=== PATIENT | female | born 1940 | race Caucasian/White ===

== ENCOUNTER 2020-03-04 11:07 | Emergency (ER) | payer OTHER ==
--- NOTE | 2020-03-04 11:12 | PDOC ---
History of Present Illness - General Stated Complaint: POSSIBLE SEPSIS Time Seen by Provider: 03/04/20 11:11 History Source: EMS, Family Exam Limitations: Clinical Condition, Unresponsive
[2020-03-04] MEDS ORDERED: ACETAMINOPHEN 1000 MG/100 ML VIAL (NON FORMULARY) IVPB ONE (11:15)
[2020-03-04] MEDS ORDERED: SODIUM CHLORIDE 1,000 ML IV SCH (11:15)
--- NOTE | 2020-03-04 11:22 | PDOC ---
History of Present Illness <FitznonaPramod - Last Filed: 03/04/20 12:04> - General History Source: Patient Exam Limitations: No Limitations - History of Present Illness Initial Comments: 03/04/20 11:16 HPI: 79 yo F last known well was 3 days ago, presenting with AMS and suspected sepsis. Patient obtunded, not responsive, opens eyes and looks around the room, but not protecting her airway, only moving LUE, activated as a code sen, intubated for airway protection. Not know at this hospital, history obtained from EMS and patient's son. All: NKDA Meds: Per chart PMH: Per chart PSH: Per chart <Yomi Joseph - Last Filed: 03/05/20 09:49> - General Chief Complaint: Altered Mental Status Stated Complaint: POSSIBLE SEPSIS Time Seen by Provider: 03/04/20 11:11 NIH Stroke Scale - Last Known Well Date/Time & Onset Date Last Known Well: 03/03/20 Time Last Known Well: 20:00 - Initial Evaluation Level of consciousness: Not alert, but arousable with minimal stimulation Ask patient the month and their age: Both incorrect Ask patient to open & close eyes; make fist and let go: Both incorrect Best gaze (horizontal eye movement): Partial gaze palsy (left gaze) Visual field testing: No visual field loss Facial paresis (Show teeth/raise eyebrows/close eyes tight): Partial paralysis (total or near paralysis of lower face) Motor Function: Left Arm: Normal Motor Function: Right Arm: No movement Motor Function: Left Leg: No effort against gravity Motor Function: Right Leg: No movement Limb Ataxia: Untestable (Joint fused or limb amputated), explain: (paralysis / clnical condition) Sensory(Use pinprick test arms,legs,trunk,face/side to side): Severe to total sensory loss Best language (Describe picture, name items, read sentences): Mute Dysarthria (read several words): Intubated or other physical barrierr, explain: (intubated) Extinction and Inattention: Profound leonel-inattention or extinction to more than one modality (ignoring right side) - Total Score NIH Stroke Scale Score: 26 <Yomi Joseph - Last Filed: 03/05/20 09:49> tPA Exclusion checklist 3-4.5h - Time Elapsed Date last known well: 03/03/20 Time last known well: 20:00 Elaspsed time: 1 Day(s) and 13 Hour(s) and 47 Minutes - Thrombolytic Therapy Candidate Is patient eligible for thrombolytic therapy: No - Relative Exclusion Criteria 3-4.5 hr Care team unable to determine eligibility: No IV/IA thrombolysis/thrombectomy @ another hosp prior arrival: No Life expectancy <1 yr or severe co-morbid illness: No : No Patient/family refused: No Stroke severity too mild (non-disabling): No Recent acute [place] (w/in previous 3 months): No Seizure at onset with postictal residual neuro impairments: No Major surgery or serious trauma w/in previous 14 days: No Recent GI or hemorrhage (w/in previous 21 days): No - Add'l Relative Exclusion 3-4.5 hr Age > 80: Yes Hx of both diabetes AND prior ischemic stroke: No Taking an oral anticoagulant regardless of INR: No Severe Stroke (NIHSS >25): Yes - Ineligibility reason(s) Reasons No tPA given: Outside of window - delayed arrival (outside window for TPA) <Yomi Joseph - Last Filed: 03/05/20 09:49> Past History <Pramod Gonzalez - Last Filed: 03/04/20 12:04> - Travel History Traveled outside of the country in the last 30 days: No Close contact w/someone who was outside of country & ill: No <Yomi Joseph - Last Filed: 03/05/20 09:49> - Medical History Allergies/Adverse Reactions: Allergies Allergy/AdvReac Type Severity Reaction Status Date / Time No Allergy Information Allergy Unverified 03/04/20 11:13 Available Review of Systems - Review of Systems Able to Perform ROS?: No (Obtunded) Is the patient limited Citizen Of [place] proficient: Yes <Yomi Joseph - Last Filed: 03/05/20 09:49> *Physical Exam - Physical Exam 03/04/20 11:18 Vitals reviewed, afebrile (98.1 rectal), tachycardic GEN: Obtunded, appears stated age, smells of feces and urine. HEENT: NCAT, left gaze deviation, facial droop, PERRL. Sclera anicteric, non-inj ected. No facial asymmetry. CV: RRR, S1/S2, no murmurs / rubs / gallops appreciated. LUNG: CTABL, normal work of breathing. No wheezes, rales, rhonchi. No cough. GI: Soft, NTND, +BS, no guarding, no rebound. No masses. EXTREMITIES: 2+ distal pulses. No clubbing / cyanosis / edema. No gross deformity in any extremity. SKIN: Warm, dry, no rashes appreciated, non-jaundiced. Wound below right knee, on right foot, both without surrounding skin changes. PSYCH: Unable to assess. NEURO: Obtunded, left gaze deviation. Moves RLE to pain, moving LUE spontaneously. <Yomi Joseph - Last Filed: 03/05/20 09:49> Procedures - Intubation Time of Intubation: 22:00 Intubation Method: orotracheal Blade used: Glidescope Tube Size (Fr): 7.5 Medications: Etomidate, Rocuronium Tube position @ lip (cm): 20 Tube position confirmed by: Direct visualization, CO2 detector, Chest x-ray, Breath sounds Breath Sounds after Intubation: equal Intubation Complications: no complications Post Intubation Xray: Yes (advanced 2cm) <Yomi Joseph - Last Filed: 03/05/20 09:49> ED Treatment Course - LABORATORY CBC & Chemistry Diagram: 03/04/20 11:30 03/04/20 11:30 <Pramod Gonzalez - Last Filed: 03/04/20 12:04> - LABORATORY CBC & Chemistry Diagram: 03/04/20 11:30 03/04/20 11:30 <Yomi Joseph - Last Filed: 03/05/20 09:49> Medical Decision Making - Critical Care Time Total Critical Care Time (minutes): 60 Critical Care Statement: The care of this patient involved high complexity decision making to prevent further life threatening deterioration of the patient's condition and/or to evaluate & treat vital organ system(s) failure or risk of failure. - Medical Decision Making 03/04/20 12:47 79 yo F AMS, activated as code Sen due to gaze deviation and alteration. Found to have left MCA stroke. Intubated for airway protection. Afib with RVR, unclear when last took medications. Accepted for transfer at [facility]. - Sepsis and Stroke workup - Cardizem pushes for afib RVR (15, 10) - Propofol for sedation Dispo: Transfer to [facility] <Yomi Joseph - Last Filed: 03/05/20 09:49> Discharge - Discharge Information Problems reviewed: Yes <Pramod Gonzalez - Last Filed: 03/04/20 12:04> - Discharge Information Problems reviewed: Yes - Transfer to Acute Care Facility Receiving Facility Name: [facility]) Accepting Physician:: Dr. Santos <Yomi Joseph - Last Filed: 03/05/20 09:49> - Discharge Information Clinical Impression/Diagnosis: Acute ischemic left MCA stroke, Atrial fibrillation with RVR Condition: Guarded Disposition: TRANSFER ACUTE CARE/OTHER HOSP
[2020-03-04] MEDS ORDERED: dilTIAZem HCL 125 MG/25 ML - 25 ML VIAL ONE (11:28)
[2020-03-04] MEDS ORDERED: dilTIAZem HCL 50 MG/10 ML - 10 ML VIAL IVPUSH ONE ×2 (11:29→12:34)
[2020-03-04] MEDS ORDERED: PROPOFOL 1,000,000 MCG/100 ML VIAL ONE (11:48)
[2020-03-04 11:59] LABS: VENOUS BASE EXCESS -1.8 mmol/L (-2-2); VENOUS O2 SATURATION 39.6 % (70-80); VENOUS PCO2 42.5 mmHg (38-52); VENOUS PH 7.363 (7.310-7.410)
[2020-03-04 12:06] VITALS: TEMP 98.2
[2020-03-04 12:13] VITALS: BMI 35.4
[2020-03-04 12:15] LABS: INR 1.1 (0.83-1.09)
[2020-03-04 12:18] LABS: ACTIVATED PTT 25.8 SECONDS (25.2-36.5)
[2020-03-04] MEDS ORDERED: ETOMIDATE 20 MG/10 ML AMPUL IVPUSH ONE (12:19)
[2020-03-04] MEDS ORDERED: ACETAMINOPHEN INJECTION 100 ML IVPB ONE (12:19)
[2020-03-04] MEDS ORDERED: ROCURONIUM BROMIDE 50 MG/5 ML VIAL IV ONE (12:19)
--- NOTE | 2020-03-04 12:24 | PDOC ---
Documentation entered by Eva Salazar SCRIBE, acting as scribe for Jaki Sloan MD. Jaki Sloan MD: This documentation has been prepared by the darianibMartin knight Lincy, SCRIBE, under my direction and personally reviewed by me in its entirety. I confirm that the documentation accurately reflects all work, treatment, procedures, and medical decision making performed by me. Attending Attestation - Resident Resident Name: JakeYomi - ED Attending Attestation I have performed the following: I have examined & evaluated the patient, The case was reviewed & discussed with the resident, I agree w/resident's findings & plan, Exceptions are as noted - HPI HPI: 03/04/20 11:46 The patient is an 79-year-old female with a past medical history significant for Afib who presents to the emergency department with AMS. Per the patients son, last known well was 3 days ago. The patient was compliant with her medication yesterday morning and hasn't been seen by someone since, except by her daughter. The patient resides with her mentally disabled daughter, who reports the patient suffered a fall. The patient was found down at home with a bottle of Percocet near her. Unsure if the patient took the medication. The patient didnt have pinpoint pupils on the scene. On arrival to the ED, the patient had a strong urine smell. History is limited due to clinical condition and patient has never been to the this ED - Physicial Exam PE: 03/04/20 11:41 GENERAL: elderly, +obtunded, HEENT: +Left gaze deviated. PERRLA, EOMI, a bit dry mucous membranes NECK/BACK: no midline ttp, no spinal stepoff or deformity, no hematoma, neck supple CARDIOVASCULAR: rapid HR and irregularly irregular, no MGR, strong peripheral pulses, capillary refill 4 seconds, extremities wwp, no edema LUNGS/RESPIRATORY: no respiratory distress, CTAB GI/ABDOMEN: +defecated in the diaper. symmetric [id number], normoactive BS, soft, no ttp, no midline pulsatile masses : +strong smell of urine. no CVA tenderness MSK/EXTREMITIES: +no outward evidence of trauma. no acute-appearing muscle atrophy, no acute deformity DERM/SKIN: warm and dry, no pallor, no jaundice, no rash, no pathologic-appear ing bruising, no skin breakdown, no cuts, no lesions NEUROLOGICAL: +left gaze deviated. +obtunded, GCS 7, right sided neglect, 2/5 strength RUE, no purposeful movements of BLE, 5/5 strength LUE, no obvious facial droop - Medical Decision Making 79YOF with A-fib, on Eliquis and Metoprolol, found down on ground at home after unknown amount of time, last seen acting at normal baseline ~3 days ago per her son. Initial Vital Signs Temp Pulse Resp BP Pulse Ox 98.1 F 207 H 19 190/97 H 99 03/04/20 11:08 03/04/20 11:08 03/04/20 11:08 03/04/20 11:08 03/04/20 11:08 Most likely stroke given the patient's exam with prominent neuro deficits, decreased responsiveness, inability to communicate with us. Patient was reportedly hypoxic on EMS arrival on scene, SpO2 80% per their report. There is also possible component of sepsis given the strong urine odor. Provider Orders Category Date Time Status VBG [VENOUS BLOOD GAS] Stat ABG 03/04/20 11:30 Completed TYPE AND SCREEN Stat Blood Bank 03/04/20 11:[address] (STROKE) [CT] Stat CT Scan 03/04/20 11:13 Completed ELECTROCARDIOGRAM [CARD] Stat Cardiology 03/04/20 11:13 Ordered BGM (Blood Glucose Monitoring) NOW Care 03/04/20 11:15 Active Cardiac Monitoring Continuous Care 03/04/20 11:13 Active EKG needed NOW Care 03/04/20 11:13 Completed Blakely Catheter, Daily Care DAILY Care 03/04/20 12:35 Active Blakely Catheter, Insert ONCE Care 03/04/20 12:35 Completed HOB Elevated 30-45 Degrees NOW Care 03/04/20 11:13 Active IV - Insert 2 lines NOW Care 03/04/20 11:13 Completed Insert Saline Lock NOW Care 03/04/20 11:13 Active Vital Signs Q30M Care 03/04/20 11:13 Active Weight NOW Care 03/04/20 11:13 Active Physician Consultation Physician 1 Cons 03/04/20 11:13 Ordered CARDIAC PROFILE ([facility]) Stat Lab 03/04/20 11:30 Completed CBC WITH DIFFERENTIAL Stat Lab 03/04/20 11:30 Completed CK INDEX Stat Lab 03/04/20 11:30 Completed CK MB Stat Lab 03/04/20 11:30 Completed COMP METABOLIC PANEL Stat Lab 03/04/20 11:30 Completed Covid 19 in-house (Restricted use only) [SARS COV-2 RT- Lab 03/04/20 11:51 Completed PCR] Urgent LACTIC ACID Stat Lab 03/04/20 11:30 Completed LIPID PROFILE ([facility] ONLY) Stat Lab 03/04/20 11:30 Completed PT & APTT Stat Lab 03/04/20 11:30 Completed UA ([facility]) ONLY Stat Lab 03/04/20 11:50 Completed Acetaminophen Injection [Ofirmev Injection -] Medication 03/04/20 11:15 Discontinued 1,000 mg IVPB ONCE ONE Acetaminophen Injection [Ofirmev Injection -] 100 ml Medication 03/04/20 12:19 Discontinued IVPB UD Diltiazem Injection [Cardizem Injection -] Medication 03/04/20 12:34 Discontinued 10 mg IVPUSH ONCE ONE Diltiazem Injection [Cardizem Injection -] Medication 03/04/20 11:28 Discontinued 125 mg .ROUTE .STK-MED ONE Diltiazem Injection [Cardizem Injection -] Medication 03/04/20 11:29 Discontinued 15 mg IVPUSH ONCE ONE Etomidate [Amidate -] Medication 03/04/20 12:19 Discontinued 20 mg IVPUSH ONCE ONE Propofol [Diprivan -] Medication 03/04/20 11:48 Discontinued 1,000,000 mcg in 100 ml .ROUTE UD Rocuronium [place] [[place] -] Medication 03/04/20 12:19 Discontinued 100 mg IV ONCE ONE Sodium Chloride [Normal Saline -] 1,000 ml Medication 03/04/20 11:15 Discontinued IV ASDIR Sodium Chloride [Normal Saline -] 1,000 ml Medication 03/04/20 12:35 Discontinued IV ASDIR BLOOD CULTURE Stat Micro 03/04/20 11:30 Received URINE CULTURE Stat Micro 03/04/20 11:50 Received Continuous Pulse Oximetry NOW Phy Order 03/04/20 11:13 Completed CHEST X-RAY PORTABLE* [RAD] Stat Radiology 03/04/20 12:08 Completed Reminder: new phy cons See Order Reminders 03/04/20 11:13 Ordered Vent Settings As directed Scratcher 03/04/20 12:04 Active Medications Discontinued Medications Generic Name Dose Route Start Last Admin Trade Name Dasia PRN Reason Stop Dose Admin Acetaminophen 1,000 mg 03/04/20 11:15 03/04/20 12:30 Ofirmev Injection - IVPB 03/04/20 11:16 1,000 mg ONCE ONE Administration Diltiazem HCl 15 mg 03/04/20 11:29 03/04/20 12:30 Cardizem Injection - IVPUSH 03/04/20 11:30 15 mg ONCE ONE Administration Diltiazem HCl Confirm 03/04/20 11:28 Cardizem Injection - Administered 03/04/20 11:29 Dose 125 mg .ROUTE .STK-MED ONE Diltiazem HCl 10 mg 03/04/20 12:34 Cardizem Injection - IVPUSH 03/04/20 12:35 ONCE ONE Etomidate 20 mg 03/04/20 12:19 03/04/20 12:31 Amidate - IVPUSH 03/04/20 12:20 20 mg ONCE ONE Administration Sodium Chloride 1,000 mls @ 42 mls/hr 03/04/20 11:15 03/04/20 12:30 Normal Saline - IV 42 mls/hr ASDIR CARL Administration Propofol Confirm 03/04/20 11:48 Diprivan - Administered 03/04/20 11:49 Dose 1,000,000 mcg in 100 mls @ ud .ROUTE .STK-MED ONE Acetaminophen Confirm 03/04/20 12:19 Ofirmev Injection - Administered 03/04/20 12:20 Dose 100 mls @ ud IVPB .STK-MED ONE Sodium Chloride 1,000 mls @ 1,000 mls/hr 03/04/20 12:35 Normal Saline - IV 03/04/20 13:34 ASDIR STA Rocuronium [place] 100 mg 03/04/20 12:19 03/04/20 12:31 Zem[place] - IV 03/04/20 12:20 100 mg ONCE ONE Administration Lab Results WBC 16.3 K/mm3 (4.0-10.0) H 03/04/20 11:30 RBC 4.00 M/mm3 (3.60-5.2) 03/04/20 11:30 Hgb 12.7 GM/dL (10.7-15.3) 03/04/20 11:30 Hct 38.8 % (32.4-45.2) 03/04/20 11:30 MCV 97.0 fl (80-96) H 03/04/20 11:30 MCH 31.7 pg (25.7-33.7) 03/04/20 11:30 MCHC 32.7 g/dl (32.0-36.0) 03/04/20 11:30 RDW 14.3 % (11.6-15.6) 03/04/20 11:30 Plt Count 165 K/MM3 (134-434) 03/04/20 11:30 MPV 9.6 fl (7.5-11.1) 03/04/20 11:30 Absolute Neuts (auto) 13.8 K/mm3 (1.5-8.0) H 03/04/20 11:30 Neutrophils % 84.9 % (42.8-82.8) H 03/04/20 11:30 Lymphocytes % 6.5 % (8-40) L 03/04/20 11:30 Monocytes % 8.6 % (3.8-10.2) 03/04/20 11:30 Eosinophils % 0.0 % (0-4.5) 03/04/20 11:30 Basophils % 0.0 % (0-2.0) 03/04/20 11:30 Nucleated RBC % 0 % (0-0) 03/04/20 11:30 PT with INR 13.00 SEC (9.7-13.0) 03/04/20 11:30 INR 1.10 (0.83-1.09) H 03/04/20 11:30 PTT (Actin FS) 25.8 SECONDS (25.2-36.5) 03/04/20 11:30 VBG pH 7.363 (7.310-7.410) 03/04/20 11:30 POC VBG pCO2 42.5 mmHg (38-52) 03/04/20 11:30 POC VBG pO2 23.6 mmHg (28-48) L 03/04/20 11:30 VBG HCO3 23.6 mmol/L (23-29) 03/04/20 11:30 VBG O2 Sat (Aure) 39.6 % (70-80) L 03/04/20 11:30 VBG Base Excess -1.8 mmol/L (-2-2) 03/04/20 11:30 Sodium 145 mmol/L (136-145) 03/04/20 11:30 Potassium 4.4 mmol/L (3.5-5.1) 03/04/20 11:30 Chloride 110 mmol/L (98-107) H 03/04/20 11:30 Carbon Dioxide 25 mmol/L (21-32) 03/04/20 11:30 Anion Gap 10 MMOL/L (8-16) 03/04/20 11:30 BUN 46.7 mg/dL (7-18) H 03/04/20 11:30 Creatinine 1.6 mg/dL (0.55-1.3) H 03/04/20 11:30 Est GFR (CKD-EPI)AfAm 34.91 03/04/20 11:30 Est GFR (CKD-EPI)NonAf 30.12 03/04/20 11:30 Random Glucose 298 mg/dL (74-106) H 03/04/20 11:30 Lactic Acid 3.5 mmol/L (0.4-2.0) H* 03/04/20 11:30 Calcium 8.8 mg/dL (8.5-10.1) 03/04/20 11:30 Total Bilirubin 1.2 mg/dL (0.2-1) H 03/04/20 11:30 AST 181 U/L (15-37) H 03/04/20 11:30 ALT 49 U/L (13-61) 03/04/20 11:30 Alkaline Phosphatase 66 U/L (45-117) 03/04/20 11:30 Creatine Kinase 6736 U/L (26-192) H 03/04/20 11:30 Creatine Kinase Index 1.2 % (0.0-5.0) 03/04/20 11:30 CK-MB (CK-2) 85.1 ng/mL (0.5-3.6) H 03/04/20 11:30 Troponin I 0.13 ng/ml (0.00-0.05) H 03/04/20 11:30 Total Protein 6.9 g/dl (6.4-8.2) 03/04/20 11:30 Albumin 3.3 g/dl (3.4-5.0) L 03/04/20 11:30 Triglycerides 171 mg/dL (0-150) H 03/04/20 11:30 Cholesterol 202 mg/dL (50-200) H 03/04/20 11:30 Total LDL Cholesterol 96 mg/dL (5-100) 03/04/20 11:30 HDL Cholesterol 87 mg/dL (40-60) H 03/04/20 11:30 Urine Color Yellow 03/04/20 11:50 Urine Appearance Clear 03/04/20 11:50 Urine pH 5.0 (5.0-8.0) 03/04/20 11:50 Ur Specific [place] 1.018 (1.010-1.035) 03/04/20 11:50 Urine Protein 2+ (NEGATIVE) H 03/04/20 11:50 Urine Glucose (UA) Trace (NEGATIVE) 03/04/20 11:50 Urine Ketones Negative (NEGATIVE) 03/04/20 11:50 Urine Blood 2+ (NEGATIVE) H 03/04/20 11:50 Urine Nitrite Negative (NEGATIVE) 03/04/20 11:50 Urine Bilirubin Negative (NEGATIVE) 03/04/20 11:50 Urine Urobilinogen 0.2 mg/dL (0.2-1.0) 03/04/20 11:50 Ur Leukocyte Esterase Negative (NEGATIVE) 03/04/20 11:50 Urine WBC (Auto) 3 /uL (0-25.8) 03/04/20 11:50 Urine RBC (Auto) 10 /uL (0-23.9) 03/04/20 11:50 Urine Casts (Auto) 1 /uL (0-3.1) 03/04/20 11:50 U Epithel Cells (Auto) 1 /uL (0-25.1) 03/04/20 11:50 Urine Bacteria (Auto) 4 /uL (0-1359) 03/04/20 11:50 COVID-19 (DEBBIE) Cancelled 03/04/20 11:50 SARS-CoV-2 (PCR) Negative (Negative) 03/04/20 11:51 Blood Type O POSITIVE 03/04/20 11:30 Antibody Screen Negative 03/04/20 11:30 CT/HEAD CT (STROKE) Rule out stroke CT scan of the head without intravenous contrast No prior is available for comparison. There is a large area of low- attenuation density in the left middle cerebral artery territory involving the left frontal, parietal and temporal lobe that appears to be involving the left basal ganglia and caudate head. There is faint increased attenuation the left parietal lobe, superiorly as well as in the left anterior periventricular white matter that may represent mild hemorrhagic transformation. Mild mass effect resulting in mild effacement of the left lateral ventricle is present. There is very minimal shift of the midline structures towards the right. There is moderate atrophy, ventricular dilatation and periventricular chronic microvascular ischem ic disease changes. Left maxillary antrum is almost totally opacified. Very minimal mucoperiosteal thickening in the left ethmoid air cells. The mastoid air cells are well aerated and the calvarium is intact. IMPRESSION: Large left middle cerebral artery territory acute infarct involving the left basal ganglia and likely the left caudate head with suggestion of faint hemorrhagic transformation in the left anterior periventricular white matter as well as in the left parietal lobe. Left maxillary antrum chronic sinusitis Case discussed with Dr. Jaki Sloan, caring attending physician in the emergency room Head CT with left MCA infarct and likely early hemorrhagic conversion. ED GCS requiring intubation and transfer to NSICU. Dr. Joseph intubates with Glidescope per his resident procedure note, tube passed without issue, CXR slightly high ETT which is advanced 2 cm. RAD/CHEST X-RAY PORTABLE* Chest: Check endotracheal tube Single view the chest has been submitted. There are no prior studies for comparison . There is a large heart, unfolded aorta, scoliosis with degenerative changes, prominent central markings but clear lungs. The angles are sharp. The soft tissues are intact. An endotracheal tube is present and the tip is just below the clavicular head level and well above the alen. Correlation recommended Impression : Large heart. ET tube tip well above alen. 03/04/20 11:46 Call placed to [facility]. Waiting for a call back from the health economist neurologist 03/04/20 12:[address] Green and Dr. Chaudhary ([facility] stroke team). They request no anticonvulsant load, so none is given. Patient accepted in transfer ED-to-ED, paperwork completed with 2-physician signature, son informed. Patient given 2nd push of Cardizem, 10 mg, because her HR increased to 160, BP at the time was 120s systolic. After 2nd Cardizem patient's HR is 110s-120s, BP up to 150s, propofol increased from 5 to 8 mcg/kg/min. EMS picks patient up without issue, HR is 120s, BP is 130s, stable for transfer on propofol drip and IVF. Vital Signs - 24 hr 03/04/20 03/04/20 03/04/20 11:08 11:13 11:43 Temperature 98.1 F 98.2 F Pulse Rate 207 H Pulse Rate [ 200 H 137 H Apical] Respiratory 19 19 19 Rate Blood Pressure 190/97 H Blood Pressure 190/95 H 141/70 [Left Arm] O2 Sat by Pulse 99 99 Oximetry (%) 03/04/20 03/04/20 12:05 12:13 Temperature Pulse Rate Pulse Rate [ 154 H Apical] Respiratory 14 19 Rate Blood Pressure Blood Pressure 122/83 [Left Arm] O2 Sat by Pulse 100 99 Oximetry (%) Heart Score/ECG Review #1 03/04/20 12:20 A-fib with RVR, rate 180, right axis deviation, TWI in III, aVF, no ST elevations Discharge - Discharge Information Problems reviewed: Yes Clinical Impression/Diagnosis: Acute ischemic left MCA stroke, Atrial fibrillation with RVR Condition: Guarded Disposition: TRANSFER ACUTE CARE/OTHER HOSP - Follow up/Referral - Patient Discharge Instructions - Post Discharge Activity - Transfer to Acute Care Facility Receiving Facility Name: [facility] Accepting Physician:: Dr. Santos Medical Decision Making - Critical Care Time Total Critical Care Time (minutes): 60 Critical Care Statement: The care of this patient involved high complexity decis ion making to prevent further life threatening deterioration of the patient's condition and/or to evaluate & treat vital organ system(s) failure or risk of failure.
[2020-03-04 12:35] VITALS: BP 122/83; PULSE 154
[2020-03-04] MEDS ORDERED: SODIUM CHLORIDE 1,000 ML IV STA (12:35)
[2020-03-04 12:36] LABS: HEMATOCRIT 38.8 % (32.4-45.2); HEMOGLOBIN 12.7 GM/dL (10.7-15.3); LYMPH % 6.5 % (8-40); MCH 31.7 pg (25.7-33.7); MCHC 32.7 g/dl (32.0-36.0); MEAN PLT VOLUME 9.6 fl (7.5-11.1); MONO % 8.6 % (3.8-10.2); NEUT % 84.9 % (42.8-82.8); PLATELET COUNT 165 K/MM3 (134-434); RDW 14.3 % (11.6-15.6); WHITE BLOOD COUNT 16.3 K/mm3 (4.0-10.0)
[2020-03-04 12:38] LABS: CHOLESTEROL 202 mg/dL (50-200); HDL CHOLESTEROL 87 mg/dL (40-60); LDL CHOLESTEROL (ONLY SJRH) 96 mg/dL (5-100); TRIGLYCERIDES 171 mg/dL (0-150)
[2020-03-04 12:43] LABS: ALBUMIN 3.3 g/dl (3.4-5.0); BILIRUBIN,TOTAL 1.2 mg/dL (0.2-1); BLOOD UREA NITROGEN 46.7 mg/dL (7-18); CALCIUM 8.8 mg/dL (8.5-10.1); CREATININE 1.6 mg/dL (0.55-1.3); POTASSIUM 4.4 mmol/L (3.5-5.1); TOT PROT 6.9 g/dl (6.4-8.2)
[2020-03-04 12:54] LABS: EPI CELLS 1 /uL (0-25.1); HYALINE CASTS 1 /uL (0-3.1); URINE APPEARANCE CLEAR; URINE BACTERIA 4 /uL (0-1359); URINE BILIRUBIN NEGATIVE (NEGATIVE); URINE COLOR YELLOW; URINE GLUCOSE (UA) TRACE (NEGATIVE); URINE KETONE NEGATIVE (NEGATIVE); URINE LEUK ESTERASE NEGATIVE (NEGATIVE); URINE NITRITE NEGATIVE (NEGATIVE); URINE PROTEIN 2+ (NEGATIVE); URINE RBC 10 /uL (0-23.9); URINE UROBILINOGEN 0.2 mg/dL (0.2-1.0); URINE WBC 3 /uL (0-25.8)
--- NOTE | 2020-03-04 16:31 | EKG ---
Test Reason : Blood Pressure : / mmHG Vent. Rate : 130 BPM Atrial Rate : 111 BPM P-R Int : 000 ms QRS Dur : 086 ms QT Int : 300 ms P-R-T Axes : 000 124 -29 degrees QTc Int : 441 ms ATRIAL FIBRILLATION WITH RAPID VENTRICULAR RESPONSE RIGHT AXIS DEVIATION ABNORMAL ECG NO PREVIOUS ECGS AVAILABLE Confirmed by BETHANIE HILL MD ([id number]) on 03/04/2020 4:31:04 PM Referred By: Confirmed By:BETHANIE HILL MD
--- NOTE | 2020-03-05 11:25 | CON.NEURO ---
Consult Consult Specialty:: [facility] Referred by:: ER Reason for Consultation:: CVA - History of Present Illness History of Present Illness: Chioma is a very pleasant 79-year-old right-handed female patient with multiple medical problem including history of cardiac arrhythmia on anticoagulation who was came into the hospital with altered mental status no seizure activity no fever no recent exposure to go with 19 patient was evaluated in the emergency room patient with hemodynamically unstable with tachycardia high per pressure stroke protocol was initiated patient has a large left MCA stroke with questionable area of hemorrhagic transformation. Patient herself was not able to give any history. What happened in the emergency room visit patient was stabilized with medical treatment and patient was transferred to the stroke team at [facility]. - History Source History Provided By: Medical Record Limitations to Obtaining History: Clinical Condition - Past Medical History ...: No - Smoking History Smoking history: Never smoked Have you smoked in the past 12 months: No Home Medications - Allergies Allergies/Adverse Reactions: Allergies Allergy/AdvReac Type Severity Reaction Status Date / Time No Allergy Information Allergy Unverified 03/04/20 11:13 Available Family Medical History Family History: Unable to Obtain Review of Systems Unable to obtain ROS, reason: unable to obtain Physical Exam-Neuro Vital Signs: Vital Signs Temperature 98.2 F 03/04/20 11:13 Pulse Rate 154 H 03/04/20 12:13 Respiratory Rate 19 03/04/20 12:13 Blood Pressure 122/83 03/04/20 12:13 O2 Sat by Pulse Oximetry (%) 99 03/04/20 12:13 Labs: CBC, BMP 03/04/20 11:30 03/04/20 11:30 INR, PTT INR 1.10 (0.83-1.09) H 03/04/20 11:30 - Neuro Exam Level Of Consciousness: Yes: Alert Eyes: Yes: PERRLA Speech: Garbled Dominant Hand: Right DTR's: 1+ Left Bicep, 1+ Right Bicep, 1+ Left Tricep, 1+ Right Tricep Imaging - Results Cat Scan: Image Reviewed Problem List - Problems (1) Acute ischemic left MCA stroke Code(s): I63.512 - CEREB INFRC D/T UNSP OCCLS OR STENOS OF LEFT MID CEREB ART Assessment/Plan Patient is within the window for tertiary stroke care. Transfer to monthly. Follow-up with a monthly stroke team regarding progress
== END 2020-03-04 12:52 | disposition short-term general hospital (02) ==
LOC: JER 11:07
PROC: 3E0333Z Introduction of Anti-inflammatory into Peripheral Vein, Percutaneous Approach (ICD-10-PCS; principal; 2020-03-04)
PROC: 3E033GC Introduction of Other Therapeutic Substance into Peripheral Vein, Percutaneous Approach (ICD-10-PCS; 2020-03-04)
PROC: 3E0337Z Introduction of Electrolytic and Water Balance Substance into Peripheral Vein, Percutaneous Approach (ICD-10-PCS; 2020-03-04)
DX: I63.512 Cerebral infarction due to unspecified occlusion or stenosis of left middle cerebral artery (principal); I48.0 Paroxysmal atrial fibrillation
CPT/HCPCS: 36415; 70450-TC; 71045-TC-FY; 80053; 80061; 81003; 82550; 82553; 82803; 83605; 83721; 84484; 85025; 85610; 85730; 86850; 86900; 86901; 87040; 87086; 93005; 93010; 99291; J0131